=== PATIENT | female | born 1960 | race Caucasian/White ===

== ENCOUNTER 2019-09-24 06:49 | Day surgery (SDC) | payer OTHER, SELFPAY ==
[2019-09-24] VITALS (8 sets, daily range): BP systolic 92–121; BP diastolic 56–77; PULSE 61–69; RESP 9–19; TEMP 36.1–36.6; O2SAT 95–100; BMI 22.2
--- NOTE | 2019-09-24 | PATH_ITS ---
[facility] Accession Number: [id number] . 01 Material submitted: . rectum - RECTAL POLYP . 02 Diagnosis: Rectum, Polyp: Hyperplastic polyp. MRV 09/25/2019 1240 Local . 02 Electronically signed: . Yuan Porter MD, PhD, Pathologist NPI- [id number] . 01 Gross description: . RECTAL POLYP: Received in formalin is 1 fragment(s) of knight, soft tissue measuring 0.2 x 0.2 x 0.2 cm submitted entirely in 1 cassette(s) /[facility] [place] 09/24/2019 2228 Local . 02 Pathologist provided ICD-10: K62.1 . 02 CPT . 967235 Performed at: 01 [facility] [address] [id number] MD Segun Meyer MD Phone: [phone] Performed at: 02 [facility] [address] [place], [place] [id number] MD April Mcclellan MD Phone: [phone]
[2019-09-24] MEDS: SODIUM CHLORIDE 0.9% 1,000 ML 200 ML IV (07:14)
--- NOTE | 2019-09-24 07:36 | PM.HP.1 ---
History of Present Illness History of Present Illness Date Patient Seen: 09/24/19 Time Patient Seen: 07:36 Chief complaint: [id number] Narrative: Patient presents for colorectal screening. The previous colonoscopy 5 years ago demonstrated an adenomatous polyp. No personal history of the colon cancer, family history significant for first-degree relative with rectal cancer. On further history denies any recent gastrointestinal symptoms. No nausea, vomiting, abdominal pain, loss of appetite, unexplained weight loss, change in bowel habits, diarrhea, constipation, melena, hematochezia, or bright red blood per rectum. Patient History Medical History Hyperlipidemia (Acute) Hypertension (Acute) Family & Social History Social History: household members spouse Tobacco & Substance use: Tobacco type cigarettes Smoking Status Current every day smoker alcohol intake current alcohol intake frequency a few times a week Substance Use Type does not use Meds Home Medications and Allergies Home Medications Medication Instructions Recorded Confirmed Type cholecalciferol (vitamin D3) 125 mcg PO DAILY 09/24/19 09/24/19 History [Vitamin D3] coQ10 (ubiquinol) 300 mg PO DAILY 09/24/19 09/24/19 History flaxseed oil 1,400 mg PO DAILY 09/24/19 09/24/19 History magnesium 200 mg PO BID 09/24/19 09/24/19 History omega 0-lmg-otz-fish oil [Fish Oil] 1 cap PO DAILY 09/24/19 09/24/19 History Allergies Allergy/AdvReac Type Severity Reaction Status Date / Time polymyxin B [From Polysporin] Allergy Intermediate Red Rash Verified 09/24/19 07:10 bacitracin [From Polysporin] Allergy Unknown Verified 09/24/19 07:10 Review of Systems Review of Systems Narrative: A 10 point review of systems is negative except as noted in the HPI Exam Vital Signs (past 8 hours): - 09/24/19 07:15 Temperature 96.9 F L Pulse Rate 62 Respiratory Rate 14 Blood Pressure 121/77 Pulse Oximetry 100 Oxygen Delivery Method Room Air Narrative Exam Narrative: General-no acute distress, well nourished HEENT-moist mucous membranes, no scleral icterus Neck-supple, no lymphadenopathy Chest- non labored respirations, clear to auscultation bilaterally Cardiac-regular rate no peripheral edema Abdomen-soft, nontender, non distended Extremities-warm, well perfused Neurological-alert and oriented, no focal deficits Assessment & Plan Assessment and plan (1) Screening for colon cancer: Current visit: Yes Status: Acute Assessment & Plan narrative: The patient requires colorectal screening and colonoscopy is recommended. Technical details were discussed. Risks, benefits, alternatives explained. Risks including but not limited to myocardial infarction, aspiration, bleeding, pain, missed lesion, incomplete examination, need for further radiographic studies, colonic perforation, and need for major abdominal surgery were discussed. All questions were answered to their satisfaction, and they are in agreement with this plan.
[2019-09-24] MEDS: MIDAZOLAM 5 MG/5 ML VIAL IV (07:45)
[2019-09-24] MEDS: fentaNYL 250 MCG/5 ML INJ IV (07:47)
--- NOTE | 2019-09-24 08:04 | PM.OP.ENDO ---
Operative Date/Time/Diagnoses Date of procedure: 09/24/19 Time of procedure: 08:04 Pre-op diagnosis: Screening colonoscopy Family history of colon cancer Prior adenomatous polyp Post-op diagnosis: same Procedure & Clinicians Study performed: Colonoscopy Same procedure as scheduled: Yes Indications: 59-year-old female 1st degree relative with colon cancer last colonoscopy 5 years ago demonstrated adenomatous polyp. Surgeon: Jitendra Varma Procedure Notes SCOAP/Timeout: Performed Procedure in detail: Patient placed in left lateral decubitus position. Time out was performed. Procedural sedation was administered with Versed and Fentanyl. A rectal exam demonstrated no external hemorrhoids no internal masses. Colonoscopy scope was placed into the rectum and advanced through the colon to the cecum. The ileocecal valve was identified. The scope was then slowly withdrawn examining colon thoroughly in all directions. The colonoscopy was notable for the following 1. Rectal polyp removed with the forceps biopsy. Hemostatic 2. Sigmoid diverticulosis 3. Quality of prep excellent Scope withdrawal time: 7 Sedation minutes: 15 Findings: diverticulosis and polyp Specimen(s): other Complications: none Impression: Polyp Post-procedure Recommendations: Colonscopy in 5 years Disposition: same day surgery
== END 2019-09-24 09:40 | disposition home or self-care (01) ==
PROVIDERS: PCP Family Medicine; Referring Provider Surgery; Visit Provider Surgery
PROC: 0DJD8ZZ Inspection of Lower Intestinal Tract, Via Natural or Artificial Opening Endoscopic (ICD-10-PCS; CPT 45378; principal; 2019-09-24 07:45)
DX: Z12.11 Encounter for screening for malignant neoplasm of colon (principal); Z80.0 Family history of malignant neoplasm of digestive organs; Z86.010 Personal history of colon polyps; K57.30 Diverticulosis of large intestine without perforation or abscess without bleeding; K62.1 Rectal polyp
CPT/HCPCS: 45380; 99152; J2250; J3010